=== PATIENT | male | born 1940 | race Caucasian/White ===

== ENCOUNTER 2016-02-12 10:42 | Inpatient (IN) | payer MEDICARE, OTHER ==
[2016-02-12] VITALS (23 sets, daily range): BP systolic 128–234; BP diastolic 67–104; PULSE 47–78; RESP 8–20; TEMP 97.8–98.2; O2SAT 95–99
[~2016-02-12] VITALS: Ht 170.2 cm; Wt 98.2 kg
--- NOTE | 2016-02-12 11:19 | RADRPT ---
EXAM DATE/TIME: 02/12/2016 11:04 [facility] COMPARISON: No previous studies available for comparison. INDICATIONS : Right arm weakness RADIATION DOSE: 46.66 CTDIvol (mGy) This report was called by Will to Dr. Heaton at 1110 MEDICAL HISTORY : None SURGICAL HISTORY : None. ENCOUNTER: Initial ACUITY: 1 day PAIN SCALE: Non-responsive LOCATION: cranial TECHNIQUE: Multiple contiguous axial images were obtained of the head. Using automated exposure control and adj ustment of the mA and/or kV according to patient size, radiation dose was kept as low as reasonably a chievable to obtain optimal diagnostic quality images. FINDINGS: There is an old right temporoparietal stroke in addition to an old small volume left mid convexity pa rietal-occipital stroke. No evidence of intracranial hemorrhage or mass. There is patchy moderate dim inished attenuation deep white matter structures and mildly diminished attenuation in a small area of the high convexity left frontal cortex which could potentially reflect early evolving cortical infar ction. The extracranial structures are benign and intact. CONCLUSION: Old strokes. Patchy white matter demyelinization. Small area of possible early high convexity left fr ontal cortical edema. No evidence of hemorrhage Arden Solis MD on February 12, 2016 at 11:10 Board Certified Radiologist. This report was verified electronically.
--- NOTE | 2016-02-12 11:19 | PD ---
HPI Chief Complaint: Stroke Alert Time Seen by Provider: 10:53 Travel History International Travel<30 days: No Contact w/Intl Traveler<30days: No Traveled to known affect area: No History of Present Illness HPI 75-year-old male with sore in by EMS stroke alert. Patient's states the patient woke up around 6:00 this morning and fell out of bed. Patient's noticed patient has right arm weakness at that time. Patient's states that she tried to give him an aspirin and he spit it out. Patient was put back to bed and his at 6:00 this morning. Patient try to get out of bed again and unable to get out of bed. EMS was called. Patient was brought to the emergency room at 1042. Patient's states the patient has history of dyslipidemia. Patient's stated the patient does not have any history hypertension, diabetes. Patient's stated the patient does not have a history of stroke in the past. Patient otherwise states the patient quit smoking many years ago. [facility] Social History Tobacco Use: No Allergies-Medications (Allergen,Severity, Reaction): Coded Allergies: No Known Allergies (Unverified , 02/12/16) Reported Meds & Prescriptions Reported Meds & Active Scripts Active No Active Prescriptions or Reported Medications Review of Systems General / Constitutional: No: Fever Eyes: No: Visual changes HENT: No: Headaches Cardiovascular: No: Chest Pain or Discomfort Respiratory: No: Shortness of Breath Gastrointestinal: No: Abdominal Pain Genitourinary: No: Dysuria Musculoskeletal: Positive: Weakness, No: Pain Skin: No Rash Neurologic: No: Weakness Psychiatric: No: Depression Endocrine: No: Polydipsia Hematologic/Lymphatic: No: Easy Bruising Physical Exam Narrative GENERAL: Well-nourished, well-developed patient. SKIN: Warm and dry. HEAD: Normocephalic. EYES: No scleral icterus. No injection or drainage. Pupil 2 mm equal reactive. NECK: Supple, trachea midline. No JVD or lymphadenopathy. CARDIOVASCULAR: Regular rate and rhythm without murmurs, gallops, or rubs. RESPIRATORY: Breath sounds equal bilaterally. No accessory muscle use. GASTROINTESTINAL: Abdomen soft, non-tender, nondistended. MUSCULOSKELETAL: No cyanosis, or edema. BACK: Nontender without obvious deformity. No CVA tenderness. Neurologic exam: Patient is awake and alert however has receptive aphasia. Patient is not oriented to name, place or person. Patient has mild drooping on the left side of face. Patient has obvious weakness on the right arm and mild weakness on the right leg. Deep to reflex 2+ and equal. Negative Babinski bilaterally. Data Data Last Documented VS Vital Signs Date Time Temp Pulse Resp B/P Pulse Ox O2 Delivery O2 Flow Rate FiO2 02/12/16 13:00 98.0 58 18 152/86 99 Nasal Cannula 3 Orders Diet Npo (02/12/16 Lunch) Activity Bed Rest (02/12/16 ) Electrocardiogram (02/12/16 ) I-Stat Creatinine (02/12/16 10:47) I-Stat Profile (02/12/16 10:47) Prothrombin Time / Inr (Pt) (02/12/16 10:47) Act Partial Throm Time (Ptt) (02/12/16 10:47) Complete Blood Count With Diff (02/12/16 10:47) Fibrinogen (02/12/16 10:47) Creatine Kinase (Cpk) (02/12/16 10:47) Troponin I (02/12/16 10:47) Ua Includes Microscopic (02/12/16 10:47) Drug Screen, Random Urine (02/12/16 10:47) Type And Screen (02/12/16 10:47) Ct Brain W/O Iv Contrast(Rout) (02/12/16 ) Consult Neurology (02/12/16 ) Blood Glucose (02/12/16 10:47) Ecg Monitoring (02/12/16 10:47) Neuro Checks Q2HX12,Q4H (02/12/16 10:47) Nursing Bedside Swallow Assess .ONCE (02/12/16 10:47) Iv Access Insert/Monitor (02/12/16 10:47) NPO (02/12/16 10:47) Oximetry (02/12/16 10:47) Oxygen Administration (02/12/16 10:47) Resp Oxygen Narciso C Titrat 1-4 L (02/12/16 10:47) Cath For Specimen (02/12/16 10:47) Nicardipine Inj (Cardene Inj) (02/12/16 11:00) Aspirin Supp (Aspirin Supp) (02/12/16 11:30) (Hub Use Only)Inp Phy Cons/Ref (02/12/16 ) Admit Order (Ed Use Only) (02/12/16 12:57) Mri Brain W/O Contrast (02/12/16 13:02) Labs Laboratory Tests Test 02/12/16 02/12/16 10:55 11:59 White Blood Count 9.6 TH/MM3 Red Blood Count 5.26 MIL/MM3 Hemoglobin 10.2 GM/DL Bedside Hemoglobin 11.2 G/DL Hematocrit 32.8 % Bedside Hematocrit 33.0 % Mean Corpuscular Volume 62.4 FL Mean Corpuscular Hemoglobin 19.4 PG Mean Corpuscular Hemoglobin 31.1 % Concent Red Cell Distribution Width 17.1 % Platelet Count 254 TH/MM3 Mean Platelet Volume 8.5 FL Neutrophils (%) (Auto) 63.7 % Lymphocytes (%) (Auto) 25.7 % Monocytes (%) (Auto) 7.0 % Eosinophils (%) (Auto) 2.9 % Basophils (%) (Auto) 0.7 % Neutrophils # (Auto) 6.1 TH/MM3 Lymphocytes # (Auto) 2.5 TH/MM3 Monocytes # (Auto) 0.7 TH/MM3 Eosinophils # (Auto) 0.3 TH/MM3 Basophils # (Auto) 0.1 TH/MM3 CBC Comment AUTO DIFF Differential Comment AUTO DIFF CONFIRMED Platelet Estimate NORMAL Platelet Morphology Comment NORMAL Prothrombin Time 11.1 SEC Prothromb Time International 1.0 RATIO Ratio Activated Partial 27.2 SEC Thromboplast Time Fibrinogen 365 mg/dL Bedside Sodium 140 MMOL/L Bedside Potassium 3.8 MMOL/L Bedside Chloride 109 MMOL/L Bedside Blood Urea Nitrogen 16 MG/DL Bedside Creatinine 0.9 MG/DL Bedside Glucose 102 MG/DL Total Creatine Kinase 35 U/L Troponin I 0.05 NG/ML Blood Type O POSITIVE Antibody Screen NEGATIVE Urine Color YELLOW Urine Turbidity CLEAR Urine pH 5.5 Urine Specific [place] 1.012 Urine Protein 30 mg/dL Urine Glucose (UA) NEG mg/dL Urine Ketones TRACE mg/dL Urine Occult Blood NEG Urine Nitrite NEG Urine Bilirubin NEG Urine Urobilinogen LESS THAN 2.0 MG/DL Urine Leukocyte Esterase NEG Urine RBC LESS THAN 1 /hpf Urine WBC 2 /hpf Urine Squamous Epithelial <1 /hpf Cells Urine Mucus FEW /lpf Urine Opiates Screen NEG Urine Barbiturates Screen NEG Urine Amphetamines Screen NEG Urine Benzodiazepines Screen NEG Urine Cocaine Screen NEG Urine Cannabinoids Screen NEG MDM Medical Decision Making Medical Screen Exam Complete: Yes Emergency Medical Condition: Yes Interpretation(s) Last Impressions Head CT 02/12/16 0000 Signed Impressions: Service Date/Time: February 11:04 - CONCLUSION: Old strokes. Patchy white matter demyelinization. Small area of possible early high convexity left frontal cortical edema. No evidence of hemorrhage Arden Solis MD 12:28 PM. CBC with hemoglobin 10.2 hematocrit 32.8. BMP within normal limit. UA negative. Differential Diagnosis Differential diagnosis including TIA, CVA, neuropathy, electrolyte imbalance, sepsis. Narrative Course 75-year-old with receptive aphasia, right arm weakness, mild left facial drooping. Aspirin 325 mg suppository. Normal saline solution 70 cc an hour. Head of bed flat. O2 2 L nasal cannula. Neurologist Dr. Gabriel was consulted. Diagnosis Primary Impression: Acute CVA (cerebrovascular accident) Admitting Information Admitting Physician Requests: Admit Scripts No Active Prescriptions or Reported Meds Herve Heaton MD Feb 12, 2016 11:19
[2016-02-12 11:20] LABS: I-STAT POTASSIUM 3.8 MMOL/L (3.5-4.9)
[2016-02-12 11:22] LABS: AUTOMATED NEUTROPHIL # 6.1 TH/MM3 (1.8-7.7); BASOPHIL # 0.1 TH/MM3 (0-0.2); BASOPHIL % 0.7 % (0.0-2.0); EOSINOPHIL # 0.3 TH/MM3 (0-0.4); EOSINOPHIL % 2.9 % (0.0-4.0); HEMATOCRIT 32.8 % (39.0-51.0); LYMPH % 25.7 % (9.0-44.0); LYMPHOCYTE # 2.5 TH/MM3 (1.0-4.8); MEAN CELL VOLUME 62.4 FL (80.0-100.0); MEAN CORPUSCULAR HEMOGLOBIN 19.4 PG (27.0-34.0); MEAN CORPUSCULAR HGB CONC 31.1 % (32.0-36.0); NEUT % 63.7 % (16.0-70.0); PLATELET COUNT 254 TH/MM3 (150-450); RED BLOOD COUNT 5.26 MIL/MM3 (4.50-5.90); RED CELL DISTRIBUTION WIDTH 17.1 % (11.6-17.2); WHITE BLOOD COUNT 9.6 TH/MM3 (4.0-11.0)
[2016-02-12 11:28] LABS: HEMO FLAGS AUTO DIFF
[2016-02-12] MEDS ORDERED: ASPIRIN 300 MG SUPP RECTAL ONE (11:30)
[2016-02-12 11:31] LABS: APTT (PATIENT) 27.2 SEC (24.3-30.1); PROTHROMBIN TIME - PATIENT 11.1 SEC (9.8-11.6)
[2016-02-12] MEDS: niCARdipine INJ 25 MG in SODIUM CHLOR 0.9% 250 ML INJ 250 ML IV SCH ×2 (11:42→20:15)
[2016-02-12 12:01] LABS: PLATELET ESTIMATE SMEAR NORMAL (NORMAL); PLATELET MORPHOLOGY NORMAL (NORMAL); SCAN/DIFF AUTO DIFF CONFIRMED
[2016-02-12 12:16] LABS: BLOOD, URINE NEG (NEG); GLUCOSE,URINE NEG (NEG); KETONE, URINE TRACE mg/dL (NEG); MUCUS URINE FEW /lpf (OCC); NITRITE,URINE NEG (NEG); PH, URINE 5.5 (5.0-8.5); SQUAMOUS EPITHELIAL CELL URINE <1 /hpf (0-5); URINE COLOR YELLOW (YELLW/STRAW)
[2016-02-12 12:20] LABS: AMPHETAMINE, URINE NEG (NEG); BARBITURATES, URINE NEG (NEG); COCAINE, URINE NEG (NEG)
--- NOTE | 2016-02-12 13:25 | MB ---
cc: ROGER MARK M.D. DATE OF CONSULTATION 02/12/2016 REASON FOR CONSULTATION He is a 75-year-old seen in neurological consultation. He came in as a stroke alert. I spoke to Dr. Mccormick earlier today. The patient apparently woke up around 6 o'clock in the morning and was noted to have some right arm weakness. He went back to bed and later on as he had more deficits, he was brought to the hospital. By the time he came in, he was already several hours after waking up with the symptoms and he appeared to have had an ischemic stroke, but not a candidate for thrombolytic therapy. He has not been following with a doctor for several years. He does not take any medications. NEUROLOGICAL EXAM He is accompanied by his . He is awake, alert and appears oriented. He claims his only problem is the right hand. He has a mild to moderately severe right facial weakness. He appears to have significant language dysfunction, although the communication is limited because of some language barrier. He started raising the right arm which was new as earlier today in the emergency room, he could not move the right arm or hand at all. 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 He does raise the right leg but it is clearly mildly weak in comparison to the left. He moved the left limbs well. He seems to gaze to the right and left without problems and seems to be able to count fingers. The reflexes were more brisk on the left, plantar response is probably flexor bilaterally. Ankle reflex essentially absent bilaterally. EKG shows atrial fibrillation. ASSESSMENT Acute ischemic stroke, left hemisphere causing a seizure and right hemiparesis. I am trying to open his data here to review the imaging studies. I have discussed with the nursing staff and the patient's . He was given an aspirin. We will try to keep the head of bed flat and let him run a permissive blood pressure for the next a couple of days unless it is above 210 for the systolic. Echocardiogram, MRI and MRA of the brain and neck will be arranged. I will recommend anticoagulation unless contraindications evolve. Checking a lipid profile, probably start a statin. I will follow him with you. Thank you for asking us to assist in his care. MD RAJIV Ross/ERIKA /12:37 PM /1:10 PM
[2016-02-12] MEDS ORDERED: DEXTROSE 50% IN WATER 50 ML VIAL(D50) IV PUSH PRN (13:45)
[2016-02-12] MEDS ORDERED: ENALAPRILAT 1.25 MG/ML VIAL IV PRN (13:45)
[2016-02-12] MEDS ORDERED: SODIUM CHLORIDE 0.9% FLUSH 5 ML FLUSH IVF PRN (13:45)
[2016-02-12] MEDS ORDERED: GLUCAGON 1 MG/ML VIAL IM/SQ PRN (13:45)
[2016-02-12] MEDS: ENOXAPARIN SODIUM 40 MG/0.4 ML SYRINGE SQ SCH (14:30)
--- NOTE | 2016-02-12 15:36 | RADRPT ---
EXAM DATE/TIME: 02/12/2016 14:46 [facility] COMPARISON: CT BRAIN W/O CONTRAST, February 12, 2016, 11:04. INDICATIONS : Right sided weakness. CVA. MEDICAL HISTORY : None. SURGICAL HISTORY : Appendectomy. ENCOUNTER: Subsequent ACUITY: 1 day PAIN SCORE: 0/10 LOCATION: head. TECHNIQUE: Multiplanar, multisequence MRI of the brain was performed without contrast. FINDINGS: CEREBRUM: Encephalomalacia right temporal lobe. Scattered areas of high flair abnormality are seen within both posterior temporal lobes and right parietal lobe. Other scattered areas are seen within the periventr icular white matter. Area of high flair abnormality seen within the left parietal lobe which demonstr ates restricted diffusion consistent with an acute infarct. The ventricles are normal for age. No ev idence of midline shift, mass lesion, hemorrhage or acute infarction. No extraaxial fluid collection s are seen. The pituitary gland and suprasellar cistern are normal in configuration. WHITE MATTER: Scattered areas of high flair signal abnormalities are seen in the white matter. POSTERIOR FOSSA: Acute lacunar left cerebellar infarct. The brainstem is intact. The 4th ventricle is midline. The ce rebellopontine angle is unremarkable. The cerebellar tonsils are normal in position. DIFFUSION IMAGING: Restricted diffusion left parietal lobe and left cerebellum. EXTRACRANIAL: The visualized portions of the orbits and paranasal sinuses are unremarkable. CONCLUSION: 1. Acute infarct left parietal lobe. 2. Acute lacunar infarct left cerebellum. 3. Old bilateral infarcts greatest in the right temporal lobe. Jose Juan Almeida MD on February 12, 2016 at 15:21 Board Certified Radiologist. This report was verified electronically.
[2016-02-12] MEDS: INSULIN ASPART SUPPLEMENTAL SCALE SQ SCH ×2 (15:52→19:39)
--- NOTE | 2016-02-12 16:54 | RADRPT ---
EXAM DATE/TIME: 02/12/2016 15:03 [facility] COMPARISON: No previous studies available for comparison. INDICATIONS : CVA. MEDICAL HISTORY : Right side weakness. SURGICAL HISTORY : None. ENCOUNTER: Initial ACUITY: 1 day PAIN SCORE: 0/10 LOCATION: Bilateral neck PEAK SYSTOLIC VELOCITIES (cm/sec): ICA/CCA RATIO: Right: 2.2 Left: 1.6 ICA: Right: 135 Left: 145 CCA: Right: 60 Left: 90 ECA: Right: 110 Left: 153 VERTEBRAL: Right: 82 antegrade Left: 29 antegrade Elevated flow velocities and ICA/CCA ratios have been found to correlate with increased degrees of vessel stenosis, calculated as percentage of diameter relative to a normal segment of distal ICA/CCA FINDINGS: RIGHT CAROTID: Moderate to severe plaque. LEFT CAROTID: Moderate to severe plaque. VERTEBRAL ARTERIES: Antegrade flow is seen in both vertebral arteries. MISCELLANEOUS: None. CONCLUSION: There are 50-69% stenoses within both internal carotid arteries. Jose Juan Almeida MD on February 12, 2016 at 16:50 Board Certified Radiologist. This report was verified electronically.
--- NOTE | 2016-02-12 20:57 | HHI.HP ---
[facility] Service [facility] Primary Care Physician No Primary Care Physician Admission Diagnosis acute CVA Diagnoses: Chief Complaint: rightsided weakness Travel History International Travel<30 Days: No Contact w/Intl Traveler <30 Da: No Traveled to Known Affected Are: No History of Present Illness 75 y/o male with no medical history presented to the ED with rightsided weakness. Patients is at bedside and is able to state what happened due to patients limited georgian and facial droop. states he has not seen a DR. in 5 years and is not on any medications, he has always stated he felt fine and did not need to see a Dr. Patients states he fell out of bed this morning at 6am and was unable to speak and had right sided weakness. He did not want to go to the hospital at this time, as the day goes he did not improve with his symptoms and she called 911. states he has showed some improvement since arriving to the ED. He is denying any chest pain, sob, fever or chills. Review of Systems Constitutional: DENIES: Fever, Chills Respiratory: DENIES: Cough, Sputum production, Shortness of breath Cardiovascular: DENIES: Chest pain, Lower Extremity Edema Gastrointestinal: DENIES: Diarrhea, Nausea, Vomiting Genitourinary: DENIES: Hematuria Musculoskeletal: DENIES: Back pain, Neck pain Integumentary: DENIES: Rash Hematologic/lymphatic: DENIES: Lymphadenopathy Immunologic/allergic: DENIES: Urticaria Neurologic: COMPLAINS OF: Abnormal gait, Localized weakness, Speech Problems, DENIES: Headache Past Family Social History Past Medical History patient has no medical history Past Surgical History Appendectomy Reported Medications Reported Meds & Active Scripts Active No Active Prescriptions or Reported Medications Allergies: Coded Allergies: No Known Allergies (Unverified , 02/12/16) Active Ordered Medications Current Medications Medications (Trade) Dose Ordered Sig/Dio Route Start Time Stop Time Status Last Admin (Cardene Inj/NS 250 ml Inj) 260 ml @ 0 mls/hr TITRATE IV 02/12/16 11:00 02/12/16 20:15 (NS Flush) 2 ml BID IVF 02/12/16 21:00 (NS Flush) 2 ml UNSCH PRN IVF 02/12/16 13:45 (Vasotec Inj) 1.25 mg Q4H PRN IV 02/12/16 13:45 02/12/16 19:27 (Aspirin) 325 mg DAILY PO 02/13/16 09:00 (Lipitor) 10 mg HS PO 02/12/16 21:00 (D50w (Vial) Inj) 25 ml UNSCH PRN IV PUSH 02/12/16 13:45 (Glucagon Inj) 1 mg UNSCH PRN IM/SQ 02/12/16 13:45 (Lovenox Inj) 40 mg Q24H SQ 02/12/16 14:00 02/12/16 14:30 Family History Patient denies any family history Social History Tobacco use: Quit 1999 alcohol use: denies Physical Exam Vital Signs Vital Signs Date Time Temp Pulse Resp B/P Pulse Ox O2 Delivery O2 Flow Rate FiO2 02/12/16 20:36 53 8 193/74 02/12/16 20:00 208/88 02/12/16 19:40 95 Nasal Cannula 3 02/12/16 19:40 210/84 02/12/16 19:21 50 215/86 02/12/16 19:19 55 203/103 02/12/16 17:55 98.0 52 18 128/84 98 Nasal Cannula 3 02/12/16 15:54 97.8 60 18 190/95 97 Nasal Cannula 3 02/12/16 13:55 98.1 78 18 160/82 98 Nasal Cannula 3 02/12/16 13:53 96 21 02/12/16 13:00 98.0 58 18 152/86 99 Nasal Cannula 3 02/12/16 12:00 58 18 148/81 98 Nasal Cannula 3 02/12/16 11:00 56 18 138/80 98 Nasal Cannula 3 02/12/16 10:47 96 Nasal Cannula 3 02/12/16 10:47 98.2 58 20 234/104 95 02/12/16 10:47 58 17 96 Nasal Cannula 3 02/12/16 10:47 18 98 Nasal Cannula 3 02/12/16 10:46 96 3.00 Physical Exam GENERAL: This is a well-nourished, well-developed patient, in no apparent distress. SKIN: No rashes, ecchymoses or lesions. Cool and dry. HEAD: Atraumatic. Normocephalic. EYES: Pupils equal round and reactive. ENT: Nose without bleeding, purulent drainage or septal hematoma. Airway patent. NECK: Trachea midline. No JVD. CARDIOVASCULAR: Regular rate and rhythm without murmurs, gallops, or rubs. RESPIRATORY: Clear to auscultation. Breath sounds equal bilaterally. No wheezes , rales, or rhonchi. GASTROINTESTINAL: Abdomen soft, non-tender, nondistended. No hepato-splenomegaly , or palpable masses. No guarding. MUSCULOSKELETAL: Right upper extremity drifting, decreased laser technician. No joint tenderness, effusion, or edema noted. No calf tenderness. NEUROLOGICAL: Awake and alert. Mild slurred speech Right facial droop. 4 out of 5 muscle strength in right upper extremity. Normal speech. Laboratory Laboratory Tests Test 02/12/16 02/12/16 10:55 11:59 White Blood Count 9.6 Red Blood Count 5.26 Hemoglobin 10.2 Bedside Hemoglobin 11.2 Hematocrit 32.8 Bedside Hematocrit 33.0 Mean Corpuscular Volume 62.4 Mean Corpuscular Hemoglobin 19.4 Mean Corpuscular Hemoglobin 31.1 Concent Red Cell Distribution Width 17.1 Platelet Count 254 Mean Platelet Volume 8.5 Neutrophils (%) (Auto) 63.7 Lymphocytes (%) (Auto) 25.7 Monocytes (%) (Auto) 7.0 Eosinophils (%) (Auto) 2.9 Basophils (%) (Auto) 0.7 Neutrophils # (Auto) 6.1 Lymphocytes # (Auto) 2.5 Monocytes # (Auto) 0.7 Eosinophils # (Auto) 0.3 Basophils # (Auto) 0.1 CBC Comment AUTO DIFF Differential Comment AUTO DIFF CONFIRMED Platelet Estimate NORMAL Platelet Morphology Comment NORMAL Prothrombin Time 11.1 Prothromb Time International 1.0 Ratio Activated Partial 27.2 Thromboplast Time Fibrinogen 365 Bedside Sodium 140 Bedside Potassium 3.8 Bedside Chloride 109 Bedside Blood Urea Nitrogen 16 Bedside Creatinine 0.9 Bedside Glucose 102 Total Creatine Kinase 35 Troponin I 0.05 Blood Type O POSITIVE Antibody Screen NEGATIVE Urine Color YELLOW Urine Turbidity CLEAR Urine pH 5.5 Urine Specific [place] 1.012 Urine Protein 30 Urine Glucose (UA) NEG Urine Ketones TRACE Urine Occult Blood NEG Urine Nitrite NEG Urine Bilirubin NEG Urine Urobilinogen LESS THAN 2.0 Urine Leukocyte Esterase NEG Urine RBC LESS THAN 1 Urine WBC 2 Urine Squamous Epithelial <1 Cells Urine Mucus FEW Urine Opiates Screen NEG Urine Barbiturates Screen NEG Urine Amphetamines Screen NEG Urine Benzodiazepines Screen NEG Urine Cocaine Screen NEG Urine Cannabinoids Screen NEG Result Diagram: 02/12/16 1055 Imaging Last Impressions Brain MRI 02/12/16 1302 Signed Impressions: Service Date/Time: February 14:46 - CONCLUSION: 1. Acute infarct left parietal lobe. 2. Acute lacunar infarct left cerebellum. 3. Old bilateral infarcts greatest in the right temporal lobe. Jose Juan Almeida MD Head CT 02/12/16 0000 Signed Impressions: Service Date/Time: February 11:04 - CONCLUSION: Old strokes. Patchy white matter demyelinization. Small area of possible early high convexity left frontal cortical edema. No evidence of hemorrhage Arden Solis MD Carotid Artery Ultrasound 02/12/16 0000 Signed Impressions: Service Date/Time: February 15:03 - CONCLUSION: There are 50-69%% stenoses within both internal carotid arteries. Jose Juan Almeida MD Assessment and Plan Problem List: (1) Acute CVA (cerebrovascular accident) ICD Code: I63.9 Status: Acute (2) Afib ICD Code: I48.91 Status: Acute Assessment and Plan 75 y/o male with no medical history presented with: Acute CVA Images reviewed: Head CT shows old strokes. Brain MRI shows Acute infarct left parietal lobe. Acute lacunar infarct left cerebellum. And Old bilateral infarcts greatest in the right temporal lobe. Carotid US shows there are 50-69%% stenoses within both internal carotid arteries. -MRA pending -Consult Neurology: DR. Gabriel has seen the patient -Cont neuro checks -2D echo pending -Lipid panel pending -Lipitor 10mg started -Allow permissive hypertension treat BP if above sbp > 210 Afib EKG shows AFIB -Monitor Telemetry -Start patient on ASA 325mg DVT prophylaxis: Lovenox Discussed Condition With Patient, Patients , and Dr. Angulo Physician Certification 2 Midnight Certification Type: Admission for Inpatient Services Order for Inpatient Services The services are ordered in accordance with Medicare regulations or non- Medicare payer requirements, as applicable. In the case of services not specified as inpatient-only, they are appropriately provided as inpatient services in accordance with the 2-midnight benchmark. Estimated LOS (days): 3 days is the estimated time the patient will need to remain in the hospital, assuming treatment plan goals are met and no additional complications. Post-Hospital Plan: Not yet determined Lindy Azar Feb 12, 2016 20:57 Beryl Angulo MD Feb 12, 2016 21:45
[2016-02-12] MEDS ORDERED: ATORVASTATIN 10 MG TAB PO SCH (21:00)
[2016-02-13] VITALS (12 sets, daily range): BP systolic 121–210; BP diastolic 64–93; PULSE 42–80; RESP 17–20; TEMP 95.6–97.2; O2SAT 94–96
[2016-02-13] MEDS: SODIUM CHLORIDE 0.9% FLUSH 5 ML FLUSH IVF SCH ×3 (00:13→22:03)
[2016-02-13] MEDS: INSULIN ASPART SUPPLEMENTAL SCALE SQ SCH ×5 (07:00→22:10)
[2016-02-13] MEDS ORDERED: GADODIAMIDE PF 287 MG/ML 20 ML VIAL (for RAD MRI) IV ONE (10:27)
--- NOTE | 2016-02-13 11:14 | HHI.PR ---
Subjective Remarks Confused, mildly agitated. Did however answer yes and no questions. Nursing staff states that patient was extremely agitated this morning; at bedside was alarmed and state that he was aggressive and spoke inappropriate content to her. Objective Vitals Vital Signs Date Time Temp Pulse Resp B/P Pulse Ox O2 Delivery O2 Flow Rate FiO2 02/13/16 07:49 56 18 197/84 94 Room Air 02/13/16 05:48 71 18 189/77 96 02/13/16 05:12 48 18 199/85 95 Nasal Cannula 3 02/13/16 03:01 96 Nasal Cannula 3 02/13/16 01:34 45 176/78 02/13/16 01:18 189/86 02/13/16 00:56 188/83 02/13/16 00:30 43 18 192/89 02/13/16 00:24 42 210/93 02/12/16 23:59 50 18 204/82 95 Nasal Cannula 3 02/12/16 23:31 53 18 221/89 95 02/12/16 23:27 54 18 189/81 96 Nasal Cannula 3 02/12/16 23:00 96 21 02/12/16 21:46 50 18 173/67 02/12/16 21:35 51 18 176/72 95 Nasal Cannula 3 02/12/16 21:19 47 180/77 02/12/16 21:01 56 190/75 02/12/16 20:51 184/79 02/12/16 20:36 53 8 193/74 02/12/16 20:00 208/88 02/12/16 19:40 95 Nasal Cannula 3 02/12/16 19:40 210/84 02/12/16 19:21 50 215/86 02/12/16 19:19 55 203/103 02/12/16 17:55 98.0 52 18 128/84 98 Nasal Cannula 3 02/12/16 15:54 97.8 60 18 190/95 97 Nasal Cannula 3 02/12/16 13:55 98.1 78 18 160/82 98 Nasal Cannula 3 02/12/16 13:53 96 21 02/12/16 13:00 98.0 58 18 152/86 99 Nasal Cannula 3 02/12/16 12:00 58 18 148/81 98 Nasal Cannula 3 I/O 1/5/17 1/502/12/16 02/13/16 02/13/16 02/13/16 07:00 15:00 23:00 07:00 15:00 23:00 Output Total 200 ml Balance -200 ml Output Urine Total 200 ml # Voids 1 Result Diagram: 02/12/16 1055 Other Results Item Value Date Time Cholesterol Level 205 MG/DL H 02/13/16 0537 LDL Cholesterol 128 MG/DL H 02/13/16 0537 Imaging Last Impressions Brain MRI 02/12/16 1302 Signed Impressions: Service Date/Time: February 14:46 - CONCLUSION: 1. Acute infarct left parietal lobe. 2. Acute lacunar infarct left cerebellum. 3. Old bilateral infarcts greatest in the right temporal lobe. Jose Juan Almeida MD Head CT 02/12/16 0000 Signed Impressions: Service Date/Time: February 11:04 - CONCLUSION: Old strokes. Patchy white matter demyelinization. Small area of possible early high convexity left frontal cortical edema. No evidence of hemorrhage Arden Solis MD Carotid Artery Ultrasound 02/12/16 0000 Signed Impressions: Service Date/Time: February 15:03 - CONCLUSION: There are 50-69%% stenoses within both internal carotid arteries. Jose Juan Almeida MD Objective Remarks GENERAL: This is a well-nourished, well-developed patient, in no apparent distress. CARDIOVASCULAR: Irregular rate and rhythm RESPIRATORY: Clear to auscultation. Breath sounds equal bilaterally. No wheezes , rales, or rhonchi. GASTROINTESTINAL: Abdomen soft, non-tender, nondistended. Normal active bowel sounds MUSCULOSKELETAL: Extremities without clubbing, cyanosis, with trace edema NEURO: Confused, agitated, deficits of speech was only alert Alert & Oriented x 1 to person, but not to place time or situation, did follow directions and commands, right lower extremity 3 out of 5 in motor strength. Right upper extremity 3 out of 5 motor strength left upper extremity with a 4.5 out of 5 magento web developer strength. A/P Problem List: (1) Acute CVA (cerebrovascular accident) ICD Code: I63.9 Status: Acute (2) Afib ICD Code: I48.91 Status: Acute (3) Hypertensive urgency, malignant ICD Code: I16.0 Status: Acute Assessment and Plan 75 y/o male presented with: Acute CVAresume aspirin and Lipitor 20 mg by mouth daily at bedtime Images reviewed: Head CT shows old strokes. Brain MRI shows Acute infarct left parietal lobe. Acute lacunar infarct left cerebellum. And Old bilateral infarcts greatest in the right temporal lobe. Carotid US shows there are 50-69%% stenoses within both internal carotid arteries. -MRA pending for further evaluation with carotid stenosis, pending results may need evaluation by vascular surgeon -Neurology DR. Gabriel for further evaluation. -Cont neuro checks, -2D echo pending -Fasting Lipid panel reviewed Hypertensive urgency -Allow permissive hypertension treat BP if above sbp > 210, IV Vasotec when necessary. PT OT and cognitive therapy from speech therapy to be consulted. Consult rehabilitation medicine service. Afib -currently rate controlled. EKG shows AFIB -Monitor Telemetry -Start patient on ASA 325mg, due to acute stroke hold off on full dose anticoagulation until evaluated by neurology. Encephalopathy with symptoms of early delirium and confusion due to active CVA - reorientation, restraints for safety. Discussed with at bedside today DVT prophylaxis: Lovenox Discharge Planning Likely will need inpatient rehabilitation Beryl Angulo MD Feb 13, 2016 11:14
[2016-02-13 11:35] LABS: HEMOGLOBIN A1a 1.5 %; HEMOGLOBIN A1b 0.8 %; HEMOGLOBIN Ao 84.5 %; HEMOGLOBIN F 1.2 %; HEMOGLOBIN LA1C 1.5 %; HEMOGLOBIN P3 4.3 %
--- NOTE | 2016-02-13 12:57 | RADRPT ---
EXAM DATE/TIME: 02/13/2016 09:34 [facility] COMPARISON: US CAROTID ARTERIES, February 12, 2016, 15:03. INDICATIONS : Stenosis. CONTRAST: 20 cc Omniscan (gadodiamide) IV MEDICAL HISTORY : None. SURGICAL HISTORY : Appendectomy. ENCOUNTER: Initial ACUITY: 2 day PAIN SCORE: 0/10 LOCATION: neck Percent stenosis is calculated using the diameter of the stenotic region over the diameter of the nor mal distal internal carotid artery. TECHNIQUE: Bolus infused MRA of the extracranial circulation was performed using a neurovascular coil. Post pro cessing was performed including rotationg subvolume maximum intensity projections of each carotid art shanna, rotating full volume maximum intensity projections of both carotid arteries, sagittal and inman l sliding thin slab reformations of each carotid artery, and left oblique sliding thin slab reformati on through the aortic arch to include the origin of the arch branch vessels. FINDINGS: AORTIC ARCH: There is a three vessel origin of the great vessels from the aorta. No evidence of ostial narrowing. RIGHT CAROTID: There is mild focal eccentric irregularity of the proximal right internal carotid artery a couple of centimeters above the carotid bifurcation producing mild stenotic narrowing on the order of about 30% . Beyond this, the vessel is widely patent focally unremarkable to the skull base. LEFT CAROTID: The common carotid artery is intact. The carotid bulb has a normal configuration without ulceration or narrowing. The internal carotid artery lumen is smooth without stenosis. The external carotid ar mika is intact. VERTEBRALS: The left vertebral artery is diminutive and potentially discontinuous in the high neck. The right nicole tebral is a large caliber dominant widely patent vessel. CONCLUSION: Mild right carotid stenosis. Arden Solis MD on February 13, 2016 at 12:43 Board Certified Radiologist. This report was verified electronically.
[2016-02-13] MEDS: ASPIRIN 325 MG TAB PO SCH (15:02)
[2016-02-13] MEDS: ENOXAPARIN SODIUM 40 MG/0.4 ML SYRINGE SQ SCH (15:02)
--- NOTE | 2016-02-13 15:33 | EC ---
Study Study Date:02/13/2016 STUDY CONCLUSIONS SUMMARY - Procedure narrative: Transthoracic echocardiography. Image quality was fair. The study was technically limited due to poor acoustic window availability. Scanning was performed from the parasternal, apical, and subcostal acoustic windows. - Left ventricle: The cavity size was mildly dilated. Wall thickness was normal. Systolic function was moderately reduced. The estimated ejection fraction was in the range of 40% to 45%. Technically difficult study, so tough to tell wall motion abnormalities, but in limited views the anteroseptal wall appears at least hypokinetic. - Aortic valve: There was very mild stenosis. Valve area: 1.32cm^2 (Vmax). - Mitral valve: Mild regurgitation. - Left atrium: The atrium was moderately dilated. If LV function is below 40, please consider prescribing an ACEI or ARB or document rationale for non-use. PROCEDURE DATA STUDY STATUS: Elective. Procedure: Transthoracic echocardiography. Image quality was fair. The study was technically limited due to poor acoustic window availability. Scanning was performed from the parasternal, apical, and subcostal acoustic windows. Study completion: The patient tolerated the procedure well. Transthoracic echocardiography. M-mode, complete 2D, complete spectral Doppler, and color Doppler. Height: Height: 70in. Weight: Weight: 259.5lb. Body mass index: BMI: 37.3kg/m^2. Body surface area: BSA: 2.33m^2. Patient status: Inpatient. CARDIAC ANATOMY LEFT VENTRICLE: The cavity size was mildly dilated. Wall thickness was normal. Systolic function was moderately reduced. The estimated ejection fraction was in the range of 40% to 45%. Technically difficult study, so tough to tell wall motion abnormalities, but in limited views the anteroseptal wall appears at least hypokinetic. AORTIC VALVE: Mildly thickened leaflets. Doppler: There was very mild stenosis. No significant regurgitation. Valve area: 1.32cm^2 (Vmax). Indexed valve area: 0.57cm^2/m^2 (Vmax). Mean gradient: 6mm Hg (S). Peak gradient: 14mm Hg (S). MITRAL VALVE: The valve appears to be grossly normal. Doppler: There was no evidence for stenosis. Mild regurgitation. Peak gradient: 4mm Hg (D). LEFT ATRIUM: The atrium was moderately dilated. PULMONIC VALVE: Not well visualized. TRICUSPID VALVE: Not well visualized. Doppler: There was no evidence for stenosis. Patient weight: 259.5lb _Ejection fraction:_ 65-75% _Fractional shortening:_ 32% up to 5Kg 5-11.5Kg 11.6-22.9Kg 23-45Kg 45-57Kg Aortic Root 7-13 <17 13-22 17-27 17-27 LA diam 6-13 <23 24-38 33-47 37-40 RVID 10-17 7-15 7-15 7-18 8-17 LVIDd 12-22 <32 24-38 33-47 37-40 LVPW 2-4 3-6 5-7 6-8 7-8 IVS 2-4 3-6 5-7 6-8 7-8 BASIC MEASUREMENTS ADULT NORMAL Left ventricle LV internal dimension, ED, chordal *56.4 mm 43-52 level, PLAX LV internal dimension, ES, chordal *46.7 mm 23-38 level, PLAX Fractional shortening, chordal level, *17 % >29 PLAX LV posterior wall thickness, ED 8.14 mm IVS/LVPW ratio, ED 1.14 <1.3 Ventricular septum Septal thickness, ED 9.24 mm Aortic valve Leaflet separation 21 mm 15-26 BASIC MEASUREMENTS ADULT NORMAL Aortic valve Leaflet separation 21 mm 15-26 Aorta Root diameter, ED 33 mm 20-37 Left atrium Anterior-posterior dimension, ES *51 mm 19-40 Anterior-posterior dimension index, ES 2.19 cm/m^2 <2.2 LA/aortic root ratio 1.55 DOPPLER MEASUREMENTS ADULT NORMAL Aortic valve Peak velocity, S 185 cm/s Mean velocity, S 113 cm/s VTI, S 34.6 cm Mean gradient, S 6 mm Hg Peak gradient, S 14 mm Hg Valve area, Vmax 1.32 cm^2 Valve area index, Vmax 0.57 cm^2/m^2 Mitral valve Peak E-wave velocity 94.8 cm/s Peak A-wave velocity 38 cm/s Deceleration time *239 ms 150-230 Peak gradient, D 4 mm Hg Peak E/A ratio 2.5 Maximal regurgitant velocity 390 cm/s Pulmonic valve Peak velocity, S 111 cm/s LEGEND: Mean values are shown as u=mean value. Asterisk (*) cullen values outside specified normal range. Prepared and signed by Mello Guzman [id number]
--- NOTE | 2016-02-13 16:58 | EKG ---
Date Performed: 02/12/2016 Time Performed: 11:37:20 PTAGE: 75 years EKG: ATRIAL FIBRILLATION WITH SLOW VENTRICULAR RATE MODERATE INTRAVENTRICULAR CONDUCTION DELAY N ONSPECIFIC ST & T-WAVE ABNORMALITY ABNORMAL ECG PREVIOUS TRACING : 07/20/2000 21.30 Compared to previous tracing, the patient now has a bradyca rdic heart rate. DOCTOR: Jennyfer Ramírez Interpretating Date/Time 02/13/2016 16:57:41
--- NOTE | 2016-02-13 20:54 | HHI.PR ---
Review/Management Daily Summary echo results seen he appeared confused, agitated and some aphasia this am but right hemiparesis stable/partially improved considering cardiovascular findings, suggest anticoagulation director long term care, ? eliquis instead of asa statin, goal is ldl below [address] Samaniego to see him over the weekend Subjective Subjective Comments agitated this am seen while still in the ed pod was upset because of 's condition Active Medications Current Medications Medications (Trade) Dose Ordered Sig/Dio Route Start Time Stop Time Status Last Admin (NS Flush) 2 ml BID IVF 02/12/16 21:00 02/13/16 09:00 (NS Flush) 2 ml UNSCH PRN IVF 02/12/16 13:45 (Vasotec Inj) 1.25 mg Q4H PRN IV 02/12/16 13:45 02/12/16 19:27 (Aspirin) 325 mg DAILY PO 02/13/16 09:00 02/13/16 15:02 (D50w (Vial) Inj) 25 ml UNSCH PRN IV PUSH 02/12/16 13:45 (Glucagon Inj) 1 mg UNSCH PRN IM/SQ 02/12/16 13:45 (Lovenox Inj) 40 mg Q24H SQ 02/12/16 14:00 02/13/16 15:02 (Lipitor) 20 mg HS PO 02/13/16 21:00 Allergies Allergies Coded Allergies No Known Allergies (Unverified02/12/16) Exam I&O / VS Vital Signs Date Time Temp Pulse Resp B/P Pulse Ox O2 Delivery O2 Flow Rate FiO2 02/13/16 16:28 95.6 80 17 157/80 94 02/13/16 14:53 71 20 149/85 95 Room Air 02/13/16 11:04 66 18 190/91 96 Nasal Cannula 2 02/13/16 08:00 Nasal Cannula 2.00 02/13/16 07:49 56 18 197/84 94 Room Air 02/13/16 05:48 71 18 189/77 96 02/13/16 05:12 48 18 199/85 95 Nasal Cannula 3 02/13/16 03:01 96 Nasal Cannula 3 02/13/16 01:34 45 176/78 02/13/16 01:18 189/86 02/13/16 00:56 188/83 02/13/16 00:30 43 18 192/89 02/13/16 00:24 42 210/93 02/12/16 23:59 50 18 204/82 95 Nasal Cannula 3 02/12/16 23:31 53 18 221/89 95 02/12/16 23:27 54 18 189/81 96 Nasal Cannula 3 02/12/16 23:00 96 21 02/12/16 21:46 50 18 173/67 02/12/16 21:35 51 18 176/72 95 Nasal Cannula 3 02/12/16 21:19 47 180/77 02/12/16 21:01 56 190/75 02/12/16 20:51 184/79 Objective Radiology Results Last 48 hours Impressions Neck Magnetic Resonance Angiography 02/13/16 0000 Signed Impressions: Service Date/Time: Saturday, February 13, 2016 09:34 - CONCLUSION: Mild right carotid stenosis. Arden Solis MD Brain MRI 02/12/16 1302 Signed Impressions: Service Date/Time: February 14:46 - CONCLUSION: 1. Acute infarct left parietal lobe. 2. Acute lacunar infarct left cerebellum. 3. Old bilateral infarcts greatest in the right temporal lobe. Jose Juan Almeida MD Head CT 02/12/16 0000 Signed Impressions: Service Date/Time: February 11:04 - CONCLUSION: Old strokes. Patchy white matter demyelinization. Small area of possible early high convexity left frontal cortical edema. No evidence of hemorrhage Arden Solis MD Carotid Artery Ultrasound 02/12/16 0000 Signed Impressions: Service Date/Time: February 15:03 - CONCLUSION: There are 50-69%% stenoses within both internal carotid arteries. Jose Juan Almeida MD Micro and Labs Laboratory Tests Test 02/13/16 05:37 Triglycerides Level 150 Cholesterol Level 205 LDL Cholesterol 128 HDL Cholesterol 47.0 Cholesterol/HDL Ratio 4.36 Jaqueline Gabriel MD Feb 13, 2016 20:53
[2016-02-13] MEDS: ATORVASTATIN 20 MG TAB PO SCH (22:03)
[2016-02-14] VITALS (7 sets, daily range): BP systolic 147–212; BP diastolic 77–98; PULSE 66–78; RESP 18–20; TEMP 97.1–98.5; O2SAT 92–96
[2016-02-14] MEDS ORDERED: LORazepam 2 MG/ML VIAL IV PUSH ONE (05:00)
[2016-02-14] MEDS: INSULIN ASPART SUPPLEMENTAL SCALE SQ SCH ×4 (06:22→20:31)
--- NOTE | 2016-02-14 07:33 | HHI.PR ---
Subjective Remarks Patient in bed in restraints. He is having visual hallucinations. Per at bedside he is asking and begging her to be taken out of restraints. Per he was very agitated last night. Says she is not recognizing him. Never been agitated. Patient speaks thai and pakistani language. Per he is forgetting words in thai and he is speking more pakistani language. She is also asking for scientologist chaplan. Patient is more calm at this time. Will DC restraints and will have sitter at bedside to reorient him. Also give haldol as need. Will ask psych on consult. He is moving his legs and has a good strengths. Follows some commands. Objective Vitals Vital Signs Date Time Temp Pulse Resp B/P Pulse Ox O2 Delivery O2 Flow Rate FiO2 02/14/16 05:18 96 Nasal Cannula 3.00 02/14/16 04:22 98.5 71 18 190/81 96 02/14/16 00:00 97.6 70 20 164/79 94 02/13/16 20:00 97.2 66 18 121/64 95 02/13/16 16:28 95.6 80 17 157/80 94 02/13/16 14:53 71 20 149/85 95 Room Air 02/13/16 11:04 66 18 190/91 96 Nasal Cannula 2 02/13/16 08:00 Nasal Cannula 2.00 02/13/16 07:49 56 18 197/84 94 Room Air I/O 02/13/16 02/13/16 02/13/16 02/14/16 02/14/16 02/14/16 07:00 15:00 23:00 07:00 15:00 23:00 Intake Total 240 ml Output Total 200 ml Balance -200 ml 240 ml Intake Oral 240 ml Output Urine Total 200 ml # Voids 1 1 2 Result Diagram: 02/12/16 1055 Imaging Last Impressions Neck Magnetic Resonance Angiography 02/13/16 0000 Signed Impressions: Service Date/Time: Saturday, February 13, 2016 09:34 - CONCLUSION: Mild right carotid stenosis. Arden Solis MD Brain MRI 02/12/16 1302 Signed Impressions: Service Date/Time: February 14:46 - CONCLUSION: 1. Acute infarct left parietal lobe. 2. Acute lacunar infarct left cerebellum. 3. Old bilateral infarcts greatest in the right temporal lobe. Jose Juan Almeida MD Head CT 02/12/16 0000 Signed Impressions: Service Date/Time: February 11:04 - CONCLUSION: Old strokes. Patchy white matter demyelinization. Small area of possible early high convexity left frontal cortical edema. No evidence of hemorrhage Arden Solis MD Carotid Artery Ultrasound 02/12/16 0000 Signed Impressions: Service Date/Time: February 15:03 - CONCLUSION: There are 50-69%% stenoses within both internal carotid arteries. Jose Juan Almeida MD Objective Remarks GENERAL: This is a well-nourished, well-developed patient, in no apparent distress. CARDIOVASCULAR: Irregular rate and rhythm RESPIRATORY: Clear to auscultation. Breath sounds equal bilaterally. No wheezes , rales, or rhonchi. GASTROINTESTINAL: Abdomen soft, non-tender, nondistended. Normal active bowel sounds MUSCULOSKELETAL: Extremities without clubbing, cyanosis, with trace edema NEURO: Confused, agitated, deficits of speech was only alert Alert & Oriented x 1 to person, but not to place time or situation, did follow directions and commands, right lower extremity 4 out of 5 in motor strength. Right upper extremity 3 out of 5 motor strength left upper extremity with a 5 out of 5 numerical control machine tool operator strength. A/P Problem List: (1) Acute CVA (cerebrovascular accident) ICD Code: I63.9 Status: Acute (2) Afib ICD Code: I48.91 Status: Acute (3) Hypertensive urgency, malignant ICD Code: I16.0 Status: Acute Assessment and Plan 75 y/o male presented with: Acute CVAresume aspirin and Lipitor 20 mg by mouth daily at bedtime Images reviewed: Head CT shows old strokes. Brain MRI shows Acute infarct left parietal lobe. Acute lacunar infarct left cerebellum. And Old bilateral infarcts greatest in the right temporal lobe. Carotid US shows there are 50-69% % stenoses within both internal carotid arteries. Neck CTA with mild right carotid stenosis -Neurology Dr. Gabriel following -Cont neuro checks -2D echo reviewed EF of 40-45% -Fasting Lipid panel reviewed. Continue statin. Hypertensive urgency -Allow permissive hypertension treat BP if above SBP > 210, IV Vasotec when necessary. PT OT and cognitive therapy from speech therapy to be consulted. Consult rehabilitation medicine service. Afib -currently rate controlled. EKG shows AFIB -Monitor Telemetry -Receive ASA 325mg. Per neurology to consider eliquis. Encephalopathy with symptoms of early delirium and confusion due to active CVA - reorientation, if need can restart restraints for safety. Patient is more calm at this time. Will DC restraints and will have sitter at bedside to reorient him. Also give haldol as need. Will ask psych on consult. Consult scientologist chaplan per /patient request (follows with [employer] [facility]) DVT prophylaxis: Lovenox Discharge Planning Likely will need inpatient rehabilitation Flakita Iniguez MD Feb 14, 2016 07:33 Flakita Iniguez MD Feb 14, 2016 07:33
[2016-02-14] MEDS: ASPIRIN 325 MG TAB PO SCH (08:57)
[2016-02-14] MEDS: SODIUM CHLORIDE 0.9% FLUSH 5 ML FLUSH IVF SCH ×2 (09:00→20:31)
[2016-02-14] MEDS ORDERED: LORazepam 2 MG/ML VIAL IV PUSH PRN (12:45)
[2016-02-14] MEDS ORDERED: HALOPERIDOL LACTATE 5 MG/ML AMP IM PRN (12:45)
[2016-02-14] MEDS: ENOXAPARIN SODIUM 40 MG/0.4 ML SYRINGE SQ SCH (14:21)
[2016-02-14 18:13] LABS: BLOOD, URINE TRACE (NEG); COMMENT (UR) CULT NOT INDICATED; CULTURE IF INDICATED CULT NOT INDICATED; GLUCOSE,URINE NEG (NEG); KETONE, URINE 10 mg/dL (NEG); MUCUS URINE FEW /lpf (OCC); NITRITE,URINE NEG (NEG); PH, URINE 5.5 (5.0-8.5); URINE COLOR YELLOW (YELLW/STRAW)
[2016-02-14] MEDS: ATORVASTATIN 20 MG TAB PO SCH (20:31)
[2016-02-15 00:24] VITALS: BP 171/78; PULSE 77; RESP 18; TEMP 98.8; O2SAT 93
[2016-02-15 03:59] VITALS: BP 138/81; PULSE 75; RESP 18; O2SAT 92
[2016-02-15 08:00] VITALS: BP 120/85; PULSE 78; RESP 18; TEMP 97.7; O2SAT 96
[2016-02-15] MEDS: SODIUM CHLORIDE 0.9% FLUSH 5 ML FLUSH IVF SCH ×2 (09:00→20:58)
[2016-02-15] MEDS: ASPIRIN 325 MG TAB PO SCH (09:05)
[2016-02-15] MEDS: INSULIN ASPART SUPPLEMENTAL SCALE SQ SCH ×3 (11:00→20:57)
--- NOTE | 2016-02-15 13:10 | HHI.PR ---
Review/Management Diagnosis left mca stroke--probably cardioembolic from afib . MRA carotids show only minimal stenosis Plan I agree with Dr Gabriel to consider eliquis for improvement manager anticoagulation with history of afib Diagnosis/Plan: Daily Summary echo results seen he appeared confused, agitated and some aphasia this am but right hemiparesis stable/partially improved considering cardiovascular findings, suggest anticoagulation improvement manager, ? eliquis instead of asa statin, goal is ldl below [address] Samaniego to see him over the weekend Subjective Subjective Comments No acute events reported No headache His feels his speech is improving Still feels weak right arm especially hand, feels right leg strength is normal Active Medications Current Medications Medications (Trade) Dose Ordered Sig/Dio Route Start Time Stop Time Status Last Admin (NS Flush) 2 ml BID IVF 02/12/16 21:00 02/13/16 22:03 (NS Flush) 2 ml UNSCH PRN IVF 02/12/16 13:45 (Vasotec Inj) 1.25 mg Q4H PRN IV 02/12/16 13:45 02/12/16 19:27 (Aspirin) 325 mg DAILY PO 02/13/16 09:00 02/15/16 09:05 (D50w (Vial) Inj) 25 ml UNSCH PRN IV PUSH 02/12/16 13:45 (Glucagon Inj) 1 mg UNSCH PRN IM/SQ 02/12/16 13:45 (Lovenox Inj) 40 mg Q24H SQ 02/12/16 14:00 02/14/16 14:21 (Lipitor) 20 mg HS PO 02/13/16 21:00 02/14/16 20:31 (Haldol Inj) 2 mg Q6H PRN IM 02/14/16 12:45 Allergies Allergies Coded Allergies No Known Allergies (Unverified02/12/16) Exam I&O / VS 02/14/16 02/14/16 02/15/16 15:00 23:00 07:00 # Voids 2 2 Vital Signs Date Time Temp Pulse Resp B/P Pulse Ox O2 Delivery O2 Flow Rate FiO2 02/15/16 08:00 97.7 78 18 120/85 96 02/15/16 03:59 75 18 138/81 92 02/15/16 00:24 98.8 77 18 171/78 93 02/14/16 19:58 97.8 74 18 147/77 92 02/14/16 16:00 97.1 67 20 190/82 94 Exam Comments alert, speech is slightly nonfluent. follows commands CN--mild RUMN CN 7 weakness MOTOR 4/5 proximal RUE, 3/5 right shank archer, 5/5 RLE. diminished fine motor skills right hand Objective Micro and Labs Laboratory Tests Test 02/14/16 17:00 Urine Color YELLOW Urine Turbidity CLEAR Urine pH 5.5 Urine Specific [place] 1.023 Urine Protein 100 Urine Glucose (UA) NEG Urine Ketones 10 Urine Occult Blood TRACE Urine Nitrite NEG Urine Bilirubin NEG Urine Urobilinogen LESS THAN 2.0 Urine Leukocyte Esterase NEG Urine RBC LESS THAN 1 Urine WBC 1 Urine Mucus FEW Microscopic Urinalysis Comment CULT NOT INDICATED Ovidio Samaniego PhD Feb 15, 2016 13:10
--- NOTE | 2016-02-15 13:32 | HHI.FPPN ---
Subjective Remarks Patient seen and examined this am. Doing well this am. NO agitation in >24hrs at bedside Walking to bathroom without any issues Strength of RUE improving. Tolerating diet without issues. Objective Vitals Vital Signs Date Time Temp Pulse Resp B/P Pulse Ox O2 Delivery O2 Flow Rate FiO2 02/15/16 08:00 97.7 78 18 120/85 96 02/15/16 03:59 75 18 138/81 92 02/15/16 00:24 98.8 77 18 171/78 93 02/14/16 19:58 97.8 74 18 147/77 92 02/14/16 16:00 97.1 67 20 190/82 94 I/O 02/14/16 02/14/16 02/14/16 02/15/16 02/15/16 02/15/16 07:00 15:00 23:00 07:00 15:00 23:00 # Voids 2 2 2 Result Diagram: 02/12/16 1055 Imaging Last Impressions Neck Magnetic Resonance Angiography 02/13/16 0000 Signed Impressions: Service Date/Time: Saturday, February 13, 2016 09:34 - CONCLUSION: Mild right carotid stenosis. Arden Solis MD Brain MRI 02/12/16 1302 Signed Impressions: Service Date/Time: February 14:46 - CONCLUSION: 1. Acute infarct left parietal lobe. 2. Acute lacunar infarct left cerebellum. 3. Old bilateral infarcts greatest in the right temporal lobe. Jose Juan Almeida MD Head CT 02/12/16 0000 Signed Impressions: Service Date/Time: February 11:04 - CONCLUSION: Old strokes. Patchy white matter demyelinization. Small area of possible early high convexity left frontal cortical edema. No evidence of hemorrhage Arden Solis MD Carotid Artery Ultrasound 02/12/16 0000 Signed Impressions: Service Date/Time: February 15:03 - CONCLUSION: There are 50-69%% stenoses within both internal carotid arteries. Jose Juan Almeida MD Objective Remarks GENERAL: This is a well-nourished, well-developed patient, in no apparent distress. CARDIOVASCULAR: Irregular rate and rhythm RESPIRATORY: Clear to auscultation. Breath sounds equal bilaterally. No wheezes , rales, or rhonchi. GASTROINTESTINAL: Abdomen soft, non-tender, nondistended. Normal active bowel sounds MUSCULOSKELETAL: Extremities without clubbing, cyanosis, with trace edema NEURO: Alert & Oriented x 3, did follow directions and commands, right lower extremity 4 out of 5 in motor strength. Right upper extremity 3 out of 5 motor strength, left upper extremity with a 5 out of 5. Unable to tax compliance representative with right hand. Smile is asymmetric with slight drooping of right mouth. Sensation is in tact throughout. 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 Brain MRI shows Acute infarct left parietal lobe. Acute lacunar infarct left cerebellum. Old bilateral infarcts greatest in the right temporal lobe. Carotid US shows there are 50-69% % stenoses within both internal carotid arteries. Neck CTA with mild right carotid stenosis -Neurology Dr. Gabriel following (Dr. Samaniego over the weekend), consider eliquis for correction anticoagulation (started 02/14) -Cont neuro checks - PT, OT, speech threapy. Rehab medicine has been consulted, will likely need inpatient rehab upon discharge. - 2D echo reviewed EF of 40-45% - Fasting Lipid panel reviewed. Continue statin. Hypertensive urgency -Permissive hypertension was allowed for the first 2-3 days. Now normotensive Afib -currently rate controlled. EKG shows AFIB -Monitor Telemetry -Receive ASA 325mg. Will start eliquis as it has been >48 hrs since acute stroke and patient is stable and normotensive, 5 mg PO BID. AMS has resolved, d/c sitter Haldol 2 mg Im prn Consult hinduism chaplan per /patient request (follows with [employer]) EEG complete, report pending DVT prophylaxis: on eliquis Discharge Planning D/C pending clearance by neuro, to inpatient rehab. Marybel Sauceda MD R3 Feb 15, 2016 13:32
--- NOTE | 2016-02-15 14:35 | MG ---
cc: CALLI FORMAN M.D. Lab No: [id number] Date: 02/15/2016 Age: Sex: M Race: TECHNIQUE: 17 channel EEG. DESCRIPTION: The background rhythm reveals a symmetrical alpha rhythm with a frequency of about 8 Hz. Amplitude is roughly 20-30 microvolts. Occasional eye movement artifact identified. No epileptic features are seen. No lateralizing features identified. Photic stimulation was done in a stepwise fashion with a normal driving response. INTERPRETATION: Normal EEG. MD JARAD Rosenberg/CAYDEN /2:08 PM /2:30 PM
[2016-02-15 16:00] VITALS: BP 119/62; PULSE 70; RESP 17; TEMP 96.6; O2SAT 95
[2016-02-15] MEDS: APIXABAN 5 MG TABLET PO SCH ×2 (17:07→20:52)
[2016-02-15 20:24] VITALS: BP 144/67; PULSE 73; RESP 18; TEMP 97.5; O2SAT 91
[2016-02-15] MEDS: ATORVASTATIN 20 MG TAB PO SCH (20:52)
[2016-02-15 23:54] VITALS: BP 147/64; PULSE 64; RESP 18; O2SAT 96
[2016-02-16] MEDS: INSULIN ASPART SUPPLEMENTAL SCALE SQ SCH ×4 (06:38→20:38)
[2016-02-16 08:00] VITALS: BP 144/69; PULSE 73; RESP 19; TEMP 97.5; O2SAT 98
[2016-02-16] MEDS: SODIUM CHLORIDE 0.9% FLUSH 5 ML FLUSH IVF SCH ×2 (08:21→20:35)
[2016-02-16] MEDS: APIXABAN 5 MG TABLET PO SCH ×2 (08:21→20:35)
[2016-02-16 12:00] VITALS: BP 130/71; PULSE 80; RESP 20; TEMP 95.2; O2SAT 96; O2SAT 98
[2016-02-16 14:00] VITALS: BP_SYST 103; BP_SYST 133; BP_DIAS 62; BP_DIAS 66; PULSE 55; RESP 18; TEMP 96.6; O2SAT 100
--- NOTE | 2016-02-16 16:39 | HHI.PR ---
Subjective Remarks Patient is in nad. He is feeling much better. No n/v/d/c. Says left arm is improving. no deficit in the legs. Says she feel she has some speech problems but getting better. Says he wants to go home, says food is not good. Objective Vitals Vital Signs Date Time Temp Pulse Resp B/P Pulse Ox O2 Delivery O2 Flow Rate FiO2 02/16/16 14:00 96.6 55 18 133/66 100 02/16/16 12:00 95.2 80 20 130/71 96 02/16/16 08:00 97.5 73 19 144/69 98 02/15/16 23:54 64 18 147/64 96 02/15/16 20:24 97.5 73 18 144/67 91 I/O 02/15/16 02/15/16 02/15/16 02/16/16 02/16/16 02/16/16 07:00 15:00 23:00 07:00 15:00 23:00 Intake Total 410 ml 500 ml Balance 410 ml 500 ml Intake Oral 410 ml 500 ml # Voids 3 # Bowel Movements 0 Result Diagram: 02/12/16 1055 Imaging Last Impressions Neck Magnetic Resonance Angiography 02/13/16 0000 Signed Impressions: Service Date/Time: Saturday, February 13, 2016 09:34 - CONCLUSION: Mild right carotid stenosis. Arden Solis MD Brain MRI 02/12/16 1302 Signed Impressions: Service Date/Time: February 14:46 - CONCLUSION: 1. Acute infarct left parietal lobe. 2. Acute lacunar infarct left cerebellum. 3. Old bilateral infarcts greatest in the right temporal lobe. Jose Juan Almeida MD Head CT 02/12/16 0000 Signed Impressions: Service Date/Time: February 11:04 - CONCLUSION: Old strokes. Patchy white matter demyelinization. Small area of possible early high convexity left frontal cortical edema. No evidence of hemorrhage Arden Solis MD Carotid Artery Ultrasound 02/12/16 0000 Signed Impressions: Service Date/Time: February 15:03 - CONCLUSION: There are 50-69%% stenoses within both internal carotid arteries. Jose Juan Almeida MD Objective Remarks GENERAL: This is a well-nourished, well-developed patient, in no apparent distress. CARDIOVASCULAR: Irregular rate and rhythm RESPIRATORY: Clear to auscultation. Breath sounds equal bilaterally. No wheezes , rales, or rhonchi. GASTROINTESTINAL: Abdomen soft, non-tender, nondistended. Normal active bowel sounds MUSCULOSKELETAL: Extremities without clubbing, cyanosis, with trace edema NEURO: Confused, agitated, deficits of speech was only alert Alert & Oriented x 1 to person, but not to place time or situation, did follow directions and commands, right lower extremity 4 out of 5 in motor strength. Right upper extremity 3 out of 5 motor strength left upper extremity with a 5 out of 5 extrusion die repairer strength. A/P Problem List: (1) Acute CVA (cerebrovascular accident) ICD Code: I63.9 Status: Acute (2) Afib ICD Code: I48.91 Status: Acute (3) Hypertensive urgency, malignant ICD Code: I16.0 Status: Acute Assessment and Plan 75 y/o male presented with: Acute CVAresume aspirin and Lipitor 20 mg by mouth daily at bedtime Images reviewed: Head CT shows old strokes. Brain MRI shows Acute infarct left parietal lobe. Acute lacunar infarct left cerebellum. And Old bilateral infarcts greatest in the right temporal lobe. Carotid US shows there are 50-69% % stenoses within both internal carotid arteries. Neck CTA with mild right carotid stenosis -Neurology Dr. Gabriel following -Cont neuro checks -2D echo reviewed EF of 40-45% -Fasting Lipid panel reviewed. Continue statin. Hypertensive urgency -Allow permissive hypertension treat BP if above SBP > 210, IV Vasotec when necessary. PT OT and cognitive therapy from speech therapy to be consulted. Consult rehabilitation medicine service. Afib -currently rate controlled. EKG shows AFIB -Monitor Telemetry -Receive ASA 325mg. Per neurology to consider eliquis. Encephalopathy with symptoms of early delirium and confusion due to active CVA - reorientation, if need can restart restraints for safety. Patient is more calm at this time. Not on restraints. Consult worship chaplan per /patient request (follows with [employer]) DVT prophylaxis: Lovenox Discharge Planning Likely will need inpatient rehabilitation. Patient / would prefer to go home and have PT/OT. ST.Cognitive therapy at home Flakita Iniguez MD Feb 16, 2016 16:39
[2016-02-16] MEDS ORDERED: APIX5TAB PO (16:41)
[2016-02-16] MEDS ORDERED: LIPI20TA PO (16:41)
--- NOTE | 2016-02-16 16:41 | HHI.DS ---
Discharge Summary Admission Date Feb 12, 2016 at 13:03 Discharge Date: Feb 17, 2016 Admitting Diagnosis acute CVA (1) Acute CVA (cerebrovascular accident) ICD Code: I63.9 Diagnosis: Principal (2) Hypertensive urgency, malignant ICD Code: I16.0 Diagnosis: Secondary (3) Afib ICD Code: I48.91 Diagnosis: Principal Procedures none Transthoracic echocardiography. Image quality was fair. The study was technically limited due to poor acoustic window availability. Scanning was performed from the parasternal, apical, and subcostal acoustic windows. - Left ventricle: The cavity size was mildly dilated. Wall thickness was normal. Systolic function was moderately reduced. The estimated ejection fraction was in the range of 40% to 45%. Technically difficult study, so tough to tell wall motion abnormalities, but in limited views the anteroseptal wall appears at least hypokinetic. - Aortic valve: There was very mild stenosis. Valve area: 1.32cm^2 (Vmax). - Mitral valve: Mild regurgitation. - Left atrium: The atrium was moderately dilated. Brief History - From Admission 75 y/o male with no medical history presented to the ED with rightsided weakness. Patients is at bedside and is able to state what happened due to patients limited czech and facial droop. states he has not seen a DR. in 5 years and is not on any medications, he has always stated he felt fine and did not need to see a Dr. Patients states he fell out of bed this morning at 6am and was unable to speak and had right sided weakness. He did not want to go to the hospital at this time, as the day goes he did not improve with his symptoms and she called 911. states he has showed some improvement since arriving to the ED. He is denying any chest pain, sob, fever or chills. CBC/BMP: 02/12/16 1055 Significant Findings Laboratory Tests Test 02/14/16 17:00 Urine Protein 100 mg/dL (NEG-TRACE) Urine Ketones 10 mg/dL (NEG) Urine Occult Blood TRACE (NEG) Urine Mucus FEW /lpf (OCC) Imaging Last Impressions Neck Magnetic Resonance Angiography 02/13/16 0000 Signed Impressions: Service Date/Time: Saturday, February 13, 2016 09:34 - CONCLUSION: Mild right carotid stenosis. Arden Solis MD Brain MRI 02/12/16 1302 Signed Impressions: Service Date/Time: February 14:46 - CONCLUSION: 1. Acute infarct left parietal lobe. 2. Acute lacunar infarct left cerebellum. 3. Old bilateral infarcts greatest in the right temporal lobe. Jose Juan Almeida MD Head CT 02/12/16 0000 Signed Impressions: Service Date/Time: February 11:04 - CONCLUSION: Old strokes. Patchy white matter demyelinization. Small area of possible early high convexity left frontal cortical edema. No evidence of hemorrhage Arden Solis MD Carotid Artery Ultrasound 02/12/16 0000 Signed Impressions: Service Date/Time: February 15:03 - CONCLUSION: There are 50-69%% stenoses within both internal carotid arteries. Jose Juan Almeida MD PE at Discharge GENERAL: This is a well-nourished, well-developed patient, in no apparent distress. CARDIOVASCULAR: Irregular rate and rhythm RESPIRATORY: Clear to auscultation. Breath sounds equal bilaterally. No wheezes , rales, or rhonchi. GASTROINTESTINAL: Abdomen soft, non-tender, nondistended. Normal active bowel sounds MUSCULOSKELETAL: Extremities without clubbing, cyanosis, with trace edema NEURO: Confused, agitated, deficits of speech was only alert Alert & Oriented x 1 to person, but not to place time or situation, did follow directions and commands, right lower extremity 4 out of 5 in motor strength. Right upper extremity 3 out of 5 motor strength left upper extremity with a 5 out of 5 frog shaker strength. Hospital Course 75 y/o male presented with: Acute CVAresume aspirin and Lipitor 20 mg by mouth daily at bedtime Images reviewed: Head CT shows old strokes. Brain MRI shows Acute infarct left parietal lobe. Acute lacunar infarct left cerebellum. And Old bilateral infarcts greatest in the right temporal lobe. Carotid US shows there are 50-69% % stenoses within both internal carotid arteries. Neck CTA with mild right carotid stenosis -Neurology Dr. Gabriel following -Cont neuro checks -2D echo reviewed EF of 40-45% HLD Fasting Lipid panel reviewed. Continue statin. A1c normal Hypertensive urgency -Allow permissive hypertension treat BP if above SBP > 210, IV Vasotec when necessary. BP declined without meds and is normal. Doesn't need BP meds. PT OT and cognitive therapy from speech therapy to be consulted. Consult rehabilitation medicine service. Afib -currently rate controlled. EKG shows AFIB -Monitor Telemetry -Receive ASA 325mg. Start eliquis. Transient Encephalopathy with symptoms of early delirium and confusion due to active CVA -reorientation, if need can restart restraints for safety. Patient is more calm at this time. Not on restraints. Improved and back to normal. EEG normal. Consult scientologist chaplan per /patient request (follows with [employer]) DVT prophylaxis: Lovenox Discharge Planning Likely will need inpatient rehabilitation. Patient / would prefer to go home and have PT/OT. ST.Cognitive therapy at home. Patient improved. Aphasia improved not more agitated. Hemiparesis improved He was walking to the bath and also right arm weakness improved. Cleared by neuro for DC. Patient to follow up as OP with PCP and consultants. Pt Condition on Discharge: Fair Discharge Disposition: Discharge Home Discharge Time: <= 30 minutes Discharge Instructions DIET: Follow Instructions for: Heart Healthy Diet Speech Therapy-Diet Recommends: Mechanical Soft, Chopped Meat w/Gravy Activities you can perform: Regular-No Restrictions Follow up Referrals: Neurology - 1 Week with Ovidio Samaniego PhD PCP Follow-up - 3-5 Days New Orders: HOLTER MONITOR - 2-3 Days New Medications: Apixaban (Eliquis) 5 Mg Tab 5 MG PO BID Blood Clot Prevention #60 TAB Atorvastatin (Lipitor) 20 Mg Tab 20 MG PO HS Cholesterol Management #30 TAB Flakita Iniguez MD Feb 16, 2016 16:41
--- NOTE | 2016-02-16 16:41 | HHI.DCPOC ---
Discharge Care Plan Goals to Promote Your Health * To prevent worsening of your condition and complications * To maintain your health at the optimal level Directions to Meet Your Goals Take your medications as prescribed Follow your dietary instruction Follow activity as directed Keep your appointments as scheduled Take your immunizations and boosters as scheduled If your symptoms worsen call your PCP, if no PCP go to Urgent Care Center or Emergency Room Smoking is Dangerous to Your Health. Avoid second hand smoke Call the 24-hour hour crisis hotline for domestic abuse at Flakita Iniguez MD Feb 16, 2016 16:41
--- NOTE | 2016-02-16 16:42 | HHI.FF ---
Face to Face Verification Diagnosis: (1) Acute CVA (cerebrovascular accident) (2) Afib (3) Hypertensive urgency, malignant Physical Therapy Order: Evaluate and Treat Occupational Therapy Order: Evaluate and Treat Speech Therapy Order: To Improve: Speech and communication skills, Cognitive skills Home Health Nursing Order: Medical education Signs/symptoms of disease process Medication education-adverse effect Nursing assessment with vital signs I have seen patient Suresh Arana on 02/16/16. My clinical findings support the need for the requested home health care services because: Ltd mobility - disease progression I certify that my clinical findings support that this patient is homebound because: Post-op weakness Flakita Iniguez MD Feb 16, 2016 16:42
[2016-02-16 20:00] VITALS: BP 151/66; PULSE 57; RESP 18; TEMP 97.5; O2SAT 92
[2016-02-16] MEDS: ATORVASTATIN 20 MG TAB PO SCH (20:35)
[2016-02-17] VITALS: BP 142/64; PULSE 54; RESP 18; TEMP 97.3; O2SAT 93
[2016-02-17 04:00] VITALS: BP 139/78; PULSE 76; RESP 20; TEMP 97.6; O2SAT 98
[2016-02-17] MEDS: INSULIN ASPART SUPPLEMENTAL SCALE SQ SCH (06:21)
[2016-02-17 08:00] VITALS: BP 188/74; PULSE 62; RESP 20; TEMP 97.2; O2SAT 96
--- NOTE | 2016-02-17 08:39 | HHI.PR ---
Review/Management Diagnosis left mca stroke--probably cardioembolic from afib . 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 eliquis instead of asa statin, goal is ldl below [address] Samaniego to see him over the weekend 02/17/16 he is doing well getting up to go to bathroom residual is mild hemiparesis, mostly arm, agiotation apparently improved, asleep this am, partially awakened at bedside going home today on eliquis he will follow with dr Michelle as per Jaqueline Gabriel MD Feb 17, 2016 08:39
[2016-02-17] MEDS: APIXABAN 5 MG TABLET PO SCH (08:50)
[2016-02-17] MEDS: SODIUM CHLORIDE 0.9% FLUSH 5 ML FLUSH IVF SCH (08:50)
== END 2016-02-17 12:08 | disposition home health service (06) | DRG 64 ==
LOC: NEPC 10:42 → NEDA 13:03 → NEDH 19:06 → N05B 02-13 15:51
PROVIDERS: ADMIT Hospitalist; ATTEND Hospitalist
DX: I63.412 Cerebral infarction due to embolism of left middle cerebral artery (principal); G93.40 Encephalopathy, unspecified; G81.91 Hemiplegia, unspecified affecting right dominant side; R47.01 Aphasia; I48.91 Unspecified atrial fibrillation; I16.0 Hypertensive urgency; E78.5 Hyperlipidemia, unspecified; Z78.1 Physical restraint status; R29.810 Facial weakness; Z87.891 Personal history of nicotine dependence; W06.XXXA Fall from bed, initial encounter; Z86.73 Personal history of transient ischemic attack (TIA), and cerebral infarction without residual deficits; I65.21 Occlusion and stenosis of right carotid artery
CPT/HCPCS: 70450; 70548; 70551; 80061; 80307; 81001; 82435; 82550; 82565; 82947; 82948; 83036; 84132; 84295; 84484; 84520; 85025; 85384; 85610; 85730; 86850; 86900; 86901; 93005; 93306; 93880; 95819; A9579; J1650; J2060; J7050; P9612